=== PATIENT | male | born 1940 | race Caucasian/White ===

== ENCOUNTER → 2017-03-28 | Day surgery (SDC) | payer MEDICARE, BC ==
[~2017-03-28] MED LIST: Lactated Ringers 1,000 ML IV SCH; Midazolam 1 MG/ML 2 ML SDV ONE; Propofol 200 MG/20 ML SDV ONE; fentaNYL 100 MCG/2 ML SDV ONE
--- NOTE | 2017-03-29 09:24 | OR ---
DATE OF PROCEDURE: 03/28/2017 PREOPERATIVE DIAGNOSIS: History of tubulovillous adenoma. POSTOPERATIVE DIAGNOSES: Diverticulosis, 4 small colon polyps, history of tubulovillous adenoma. PROCEDURE PERFORMED: Colonoscopy to the cecum with biopsy resection of small polyps at 70 cm from anal verge, transverse colon, 55 cm from the anal verge, and distal rectum. ANESTHESIA: IV anesthesia with monitored anesthesia care. INDICATION: This 76-year-old white male is referred for a colonoscopy. He says his last colonoscopic exam was done 3 years ago. He has a history of tubulovillous adenoma of the colon. I counseled him for the procedure including risks and alternatives, and he gave his informed consent to proceed. DESCRIPTION OF PROCEDURE: The patient was placed in the left lateral decubitus position. IV anesthesia was administered by the Anesthesia Service. Time-out was held. A rectal exam was performed, which was unremarkable. The flexible video Olympus colonoscope was introduced through his anus, up his rectum, and out of his colon all the way to the cecum. En route, we saw a few scattered left-sided diverticula. There was no bleeding or inflammation associated with them. Once the cecum was reached, the scope was slowly withdrawn, examining the mucosa throughout. No mucosal abnormalities were noted until we reached about 70 cm from the anal verge. Here, a small polyp was seen, which was removed with the biopsy forceps. The scope was brought little proximally in the colon and another polyp was seen there, which was removed with the biopsy forceps, this was in the transverse colon. The scope was then withdrawn with other than the diverticula, no lesions noted until 55 cm from the anal verge was reached; here, another polyp was seen, which was small and removed with the biopsy forceps. The scope was brought back into the rectum, where it was retroflexed. In the distal rectum, we saw a small polyp, which was removed with the biopsy forceps. The scope was straightened and removed. He tolerated the procedure well. Lambert Amaral MD /[id number]
== END ==
LOC: JP.SDS 08:27
PROVIDERS: ATTEND Surgery
DX: Z12.11 Encounter for screening for malignant neoplasm of colon (principal); K21.9 Gastro-esophageal reflux disease without esophagitis; K57.30 Diverticulosis of large intestine without perforation or abscess without bleeding; D12.3 Benign neoplasm of transverse colon; K62.1 Rectal polyp; Z88.5 Allergy status to narcotic agent; Z86.010 Personal history of colon polyps; Z87.891 Personal history of nicotine dependence; Z85.828 Personal history of other malignant neoplasm of skin
CPT/HCPCS: 88305; J2250; J2704; J3010; J7120

== ENCOUNTER 2019-04-06 07:06 | Day surgery (SDC) | payer MEDICARE, BC ==
[2019-04-06] MEDS ORDERED: fentaNYL 100 MCG/2 ML SDV ONE (07:24)
[2019-04-06] MEDS ORDERED: Midazolam 1 MG/ML 2 ML SDV ONE (07:24)
[2019-04-06] MEDS ORDERED: Propofol 200 MG/20 ML SDV ONE (07:24)
[2019-04-06] MEDS ORDERED: Dextrose 5%-Lactated Ringers 1,000 ML IV SCH (07:45)
[2019-04-06] MEDS ORDERED: Pantoprazole 40 MG Vial IVPUSH ONE (09:15)
--- NOTE | 2019-04-15 13:33 | OR ---
DATE OF PROCEDURE: 04/06/2019 SURGEON: Tobi Sutton MD PREOPERATIVE DIAGNOSIS: Probable gastroesophageal reflux disease. POSTOPERATIVE DIAGNOSES: 1. Large hiatal hernia with ulcerated gastroesophageal reflux disease. 2. Mild antral gastritis and duodenitis. OPERATIVE PROCEDURES: Esophagogastroduodenoscopy with: 1. Biopsies of esophagogastric junction for histologic evaluation. 2. Biopsies of antrum for CLOtest. ANESTHESIA: IV sedation. INDICATIONS FOR PROCEDURE: This is a 78-year-old presenting with worsening epigastric discomfort and heartburn. He is presently not on any antisecretory medications. The plan is to proceed with upper GI endoscopy with biopsies as indicated. Potential risks including bleeding and perforation were discussed, and the patient wishes to proceed. DETAILS OF PROCEDURE: The patient was taken to the operating room, placed in a left lateral decubitus position. IV sedation was administered, after which the upper GI endoscope was passed orally through the length of the esophagus into the stomach with retroflexion view of the fundus and thereafter through the pylorus and into the junction of the third and fourth portions of the duodenum. Findings included some mild reddening of hypopharynx and larynx. Upper esophageal sphincter and esophageal body were unremarkable. At the EG junction, the level of this was quite shortened being around 30 cm from the incisors and was associated with a large roughly 10 cm hiatal hernia. This was associated with a quite striking ulcerated esophagitis extending above that. There was no plaquing or stricturing suggestive of neoplasia. As one passed further into the stomach, there was some patchy redness in the antrum and duodenal bulb, beyond which the findings normalized. At this point, biopsies were obtained from the antrum and sent for CLOtest for H pylori. Multiple biopsies were then obtained from esophagogastric junction, sent for histologic evaluation. No bleeding from the biopsy sites was seen, and the patient was taken to the recovery room in satisfactory condition. The patient will be given Protonix 40 mg IV in the recovery room and started on Protonix 40 mg daily. He is currently scheduled for a cardiac stress test at the end of the next week, and I will see the patient back in clinic on 04/18/2019. At that point, we will have the results of the stress test and also to the extent his symptoms are being improved with the proton pump inhibitors and decide how to proceed from there in terms of overall management. Tobi Sutton MD /[id number]
== END 2019-04-06 10:48 | disposition home or self-care (01) ==
LOC: JP.SDS 07:06
PROVIDERS: ATTEND Surgery
DX: K21.0 Gastro-esophageal reflux disease with esophagitis (principal); K44.9 Diaphragmatic hernia without obstruction or gangrene; K31.89 Other diseases of stomach and duodenum; K29.70 Gastritis, unspecified, without bleeding; K29.80 Duodenitis without bleeding; Z88.5 Allergy status to narcotic agent
CPT/HCPCS: 87081; 88305; 88312; C9113; J2250; J2704; J3010; J7121

== ENCOUNTER 2020-04-22 06:29 | Day surgery (SDC) | payer MEDICARE, BC ==
[2020-04-22] MEDS ORDERED: Sodium Chloride 0.9% 1,000 ML IV SCH (07:00)
[2020-04-22] MEDS ORDERED: fentaNYL 100 MCG/2 ML SDV ONE (07:19)
[2020-04-22] MEDS ORDERED: Midazolam 1 MG/ML 2 ML SDV ONE (07:19)
[2020-04-22] MEDS ORDERED: Propofol 200 MG/20 ML SDV ONE (07:19)
[2020-04-22] MEDS ORDERED: ceFAZolin 2 GM in Premix Bag 1 BAG IV ONE (07:45)
[2020-04-22] MEDS ORDERED: Atropine 0.4 MG/ML SDV ONE (08:09)
--- NOTE | 2020-04-22 10:23 | OR ---
DATE OF PROCEDURE: 04/22/2020 SURGEON: Billy Roberson MD PROCEDURE: Colonoscopy. FINDINGS: 1. Ascending colon polyp, approximately 5 mm, completely removed using cold biopsy forceps. 2. Transverse colon polyp, approximately 8 mm, completely removed using hot snare wire device. 3. Diverticulosis, mild, without evidence of diverticulitis or bleeding. COMPLICATIONS: None. REFRIGERATION BRAZER/SOLDERER: None. ANESTHESIA: MAC. PREOPERATIVE DIAGNOSIS: Screening colonoscopy. POSTOPERATIVE DIAGNOSIS: Screening colonoscopy. RISKS: Risks, benefits, alternatives, and limitations including, but not limited to infection, bleeding, and perforation along with false positives and false negatives were explained to the patient who wished to proceed. PROCEDURE IN DETAIL: The patient was placed in left lateral decubitus position. Digital rectal exam was performed without abnormality. Scope was introduced and advanced atraumatically to the ileocecal valve. A photo was taken of this. Scope was brought back to the ascending, transverse, descending colon, and retroflexed. The aforementioned polyps were all identified and completely removed. No abnormal bleeding was noted after removal. The patient did have some colitis which would be described as very mild, throughout the entire colon, but very mild in nature. No abnormalities on retroflexion. Greater than 8 minutes was spent removing the scope. No evidence of any other abnormalities. 90% of the luminal surface could be seen. The patient had a very tortuous sigmoid colon. The patient tolerated the procedure well. Billy Roberson MD /[id number]
== END 2020-04-22 09:46 | disposition home or self-care (01) ==
LOC: JP.SDS 06:29
PROVIDERS: ATTEND Surgery
DX: Z12.11 Encounter for screening for malignant neoplasm of colon (principal); D12.3 Benign neoplasm of transverse colon; D12.2 Benign neoplasm of ascending colon; K57.30 Diverticulosis of large intestine without perforation or abscess without bleeding; K52.9 Noninfective gastroenteritis and colitis, unspecified; Z88.5 Allergy status to narcotic agent
CPT/HCPCS: 88305; J0461; J0690; J2250; J2704; J3010; J7030

== ENCOUNTER 2023-03-31 06:11 | Day surgery (SDC) | payer MEDICARE, BC ==
[2023-03-31] MEDS ORDERED: Sodium Chloride 0.9% 1,000 ML IV SCH (06:45)
[2023-03-31] MEDS ORDERED: ceFAZolin 2 GM in Premix Bag 1 BAG IV ONE (07:15)
[2023-03-31] MEDS ORDERED: fentaNYL 50 MCG/ML SDV ONE (07:19)
[2023-03-31] MEDS ORDERED: Propofol 200 MG/20 ML SDV ONE (07:19)
== END 2023-03-31 09:13 | disposition home or self-care (01) ==
LOC: JP.SDS 06:11
PROVIDERS: ATTEND Surgery
DX: K22.70 Barrett's esophagus without dysplasia (principal); K29.80 Duodenitis without bleeding; K44.9 Diaphragmatic hernia without obstruction or gangrene; K22.89 Other specified disease of esophagus; E78.2 Mixed hyperlipidemia; K21.9 Gastro-esophageal reflux disease without esophagitis; I25.10 Atherosclerotic heart disease of native coronary artery without angina pectoris; Z79.82 Long term (current) use of aspirin; Z79.02 Long term (current) use of antithrombotics/antiplatelets; Z79.899 Other long term (current) drug therapy; Z88.5 Allergy status to narcotic agent
CPT/HCPCS: 43239; 88305; J0690; J2704; J3010; J7030